=== PATIENT | female | born 1945 | race Caucasian/White ===

== ENCOUNTER 2024-03-03 07:38 | Day surgery (SDC) | payer OTHER ==
[2024-03-02 15:12] VITALS: BMI 19.5
[2024-03-03 08:03] VITALS: RESP 16
[2024-03-03] MEDS ORDERED: ONDANSETRON 4 MG/2 ML VIAL ONE (08:25)
[2024-03-03] MEDS ORDERED: GLYCOPYRROLATE 0.2 MG/1 ML VIAL ONE (08:25)
[2024-03-03 09:08] VITALS: TEMP 97.3
[2024-03-03 09:23] VITALS: BP 127/58; PULSE 64
== END 2024-03-03 09:35 | disposition home or self-care (01) ==
LOC: FASU-ENDO 07:38
PROVIDERS: ATTEND Internal Medicine Gastroenterology
PROC: 0DJ08ZZ Inspection of Upper Intestinal Tract, Via Natural or Artificial Opening Endoscopic (ICD-10-PCS; principal; 2024-03-03 08:35)
DX: K22.11 Ulcer of esophagus with bleeding (principal); K44.9 Diaphragmatic hernia without obstruction or gangrene